=== PATIENT | female | born 1955 | race Caucasian/White ===

== ENCOUNTER 2017-08-22 14:35 | Observation (INO) ==
[2017-08-22] MEDS ORDERED: ONDANSETRON 4 MG/2 ML VIAL IV STA (16:55)
[2017-08-22] MEDS ORDERED: SODIUM CHLORIDE 0.9% 1,000 ML IV STA (16:55)
[2017-08-22 17:24] LABS: Basophils # 0.1 10*3/uL (0.0-0.2); Basophils % 0.7 % (0.0-0.8); Eosinophils % 0.1 % (0.00-10.9); Hematocrit 41.8 VOL% (35.7-47.0); Hemoglobin 14.1 GM/DL (12.0-16.0); Immature Granulocytes % 0.3 %; Immature Granulocytes Absolute 0.02 #; Lymphocytes # 1.2 10*3/uL (1.4-4.0); Lymphocytes % 18.1 % (21.3-54.2); Mean Corpuscular HGB Conc 33.7 GM/DL (32-36); Mean Corpuscular Hemoglobin 29 PG (27-34); Mean Platelet Volume 8.6 FL (9.6-12.0); Monocytes # 0.9 10*3/uL (0.11-0.8); Monocytes % 12.5 % (1.7-12.7); Neutrophils # 4.6 10*3/uL (1.4-7.4); Neutrophils % 68.3 % (38.7-73.9); Platelet Count 355 T/CUMM (130-400); Red Blood Count 4.92 MC/CUMM (3.8-5.5); Red Cell Distribution Width 11.8 % (9.3-17.3); White Blood Count 6.8 T/CUMM (4-12)
[2017-08-22 17:46] LABS: Alanine Aminotransferase 37 U/L (13-56); Albumin 2.7 G/DL (3.4-5.0); Alkaline Phosphatase 71 U/L (45-117); Amylase 50 U/L (25-115); Aspartate Amino Transferase 21 U/L (0-37); Blood Urea Nitrogen 10 MG/DL (7-18); Calcium 8.6 MG/DL (8.5-10.1); Glucose 83 MG/DL (74-106); Osmolality,Calculated 280.1 MOS/KG (273-304); Potassium 3.6 MMOL/L (3.5-5.1); Sodium 142 MMOL/L (136-145); Total Protein 6.4 G/DL (6.4-8.3); Troponin I Only 0.018 NG/ML (0.00-0.045)
[2017-08-22 18:38] LABS: Apearance,Urine CLEAR (Clear); Bacteria,Urine Occasional /HPF (Few); Bilirubin,Urine Negative (Negative); Blood, Urine Moderate mg/dL (Negative); Glucose,Urine (UA) Negative (Negative); Ketones,Urine 80 mg/dL (Negative); Mucus,Urine Few /LPF (Occasional); Nitrite,Urine Negative (Negative); Protein,Urine 30 MG/DL; RBC,Urine 20 /HPF (0-4); Squamous Epithelial Cell,Urine Occasional /HPF (0-10); Urine Color Yellow (Yellow); WBC,Urine 2 /HPF (0-6)
[2017-08-22] MEDS ORDERED: ZALEPLON 5 MG CAPSULE PO PRN (18:38)
[2017-08-22] MEDS ORDERED: ACETAMINOPHEN 325 MG TABLET PO PRN (18:38)
[2017-08-22] MEDS ORDERED: ONDANSETRON 4 MG/2 ML VIAL IV PRN (18:38)
[2017-08-22] MEDS ORDERED: PROMETHAZINE 25 MG/1 ML VIAL IM PRN (18:38)
[2017-08-22] MEDS ORDERED: PANTOPRAZOLE 40 MG TABLET PO PRN (18:41)
[2017-08-22] MEDS ORDERED: ACETAMINOPHEN 500 MG TABLET PO PRN (18:41)
[2017-08-22] MEDS ORDERED: FLUTICASONE 50 MCG NASAL SPRAY 16 GM BOTTLE BOTH NARES PRN (18:41)
[2017-08-22] MEDS ORDERED: NIFEdipine 10 MG CAPSULE PO PRN (18:46)
[2017-08-22] MEDS ORDERED: CYANOCOBALAMIN 1000 MCG/1 ML VIAL IM SCH (19:00)
[2017-08-22] MEDS ORDERED: ENOXAPARIN 40 MG/0.4 ML SYRINGE SUBCUT SCH (21:00)
[2017-08-22] MEDS: SODIUM CHLORIDE 0.9% 1,000 ML IV SCH (21:24)
[2017-08-22] MEDS: FERROUS SULFATE 325 MG TABLET PO SCH (21:26)
[2017-08-22] MEDS: METOPROLOL TARTRATE 100 MG TABLET PO SCH ×2 (21:26)
[2017-08-23] MEDS: SODIUM CHLORIDE 0.9% 1,000 ML IV SCH ×2 (05:12→13:25)
[2017-08-23 06:19] LABS: Calcium 7.9 MG/DL (8.5-10.1); Potassium 3.6 MMOL/L (3.5-5.1)
[2017-08-23 06:30] LABS: Risk Ratio 3.28; VLDL CHOLESTEROL 14.8 MG/DL
[2017-08-23 08:26] LABS: Total Protein (Chem) 5.6 G/DL (6.4-8.3)
[2017-08-23] MEDS ORDERED: PARoxetine 20 MG TABLET PO SCH (09:00)
[2017-08-23] MEDS ORDERED: FOLIC ACID 0.4 MG TABLET PO SCH (09:00)
[2017-08-23] MEDS ORDERED: PANTOPRAZOLE 40 MG TABLET PO SCH (09:00)
[2017-08-23] MEDS ORDERED: CALCIUM (CARBONATE)/VITAMIN D 500 MG-200 UNIT TABLET PO SCH (09:00)
[2017-08-23] MEDS ORDERED: CALCITRIOL 0.25 MCG CAPSULE PO SCH (09:00)
[2017-08-23] MEDS: METOPROLOL TARTRATE 100 MG TABLET PO SCH (09:38)
[2017-08-23] MEDS: FERROUS SULFATE 325 MG TABLET PO SCH ×2 (09:38→15:57)
[2017-08-23 13:19] LABS: Albumin (SPE) 3.2 G/DL (3.2-5.3); Albumin (SPE) Rel % 57.8 %; Alpha 1 (SPE) 0.3 G/DL (0.1-0.4); Alpha 1 (SPE) Rel % 4.9 %; Alpha 2 (SPE) 0.8 G/DL (0.4-1.0); Alpha 2 (SPE) Rel % 14.4 %
[2017-08-23 13:20] LABS: Beta (SPE) 0.6 G/DL (0.5-1.1); Beta (SPE) Rel % 11.4 %; Gamma (SPE) 0.7 G/DL (0.7-1.7); Gamma (SPE) Rel % 11.5 %
[2017-08-23 16:37] VITALS: BP 123/59
[2017-08-25 10:36] LABS: Metanephrine, Free < 0.20 nmol/L (<0.50); Normetanephrine, Free 0.63 nmol/L (<0.90)
== END 2017-08-23 18:21 | disposition home or self-care (01) ==
LOC: N.ED 14:35 → INTOOBSV 18:26 → N.EDINP 18:26 → N.TELES 18:49
PROVIDERS: ADMIT Internal Medicine; ATTEND Internal Medicine